=== PATIENT | male | born 2000 | race African-American/Black ===

== ENCOUNTER 2020-06-05 12:31 | Emergency (ER) | payer MEDICAID ==
[~2020-06-05] VITALS: Ht 180.3 cm; Wt 72.6 kg
[2020-06-05 12:54] VITALS: BP 122/77
--- NOTE | 2020-06-05 12:54 | NUR ---
ED Nurse Note: PT walked in to ed for c/O dry cough, bodyache, fatigue, headache x 4 days.
--- NOTE | 2020-06-05 14:03 | Emergency Room Report ---
History of Present Illness General Chief Complaint: Flu Like Symptoms Source: Patient Present Illness HPI 19-year-old male with no significant past medical history presents to the emergency department complaining of nonpainful cough, fatigue, body aches, and ST with a fever that broke on its own x4 days. Patient reports 4 days ago he traveled from [place] where he was around people that had upper respiratory/COVID- like symptoms. Patient denies chest pain. He denies productive sputum. Patient states he is not taking any medications for his symptoms. Denies ST, nasal congestion or rhinorrhea. Denies neck pain /stiffness. Allergies: Coded Allergies: No Known Allergies (Unverified , 06/05/20) COVID-19 Screening Contact w/high risk pt: No Experienced COVID-19 symptoms?: Yes COVID-19 Testing performed ACCOUNT CLASSIFICATION CLERK: No Patient History Past Medical History: see triage record Past Surgical History: none Pertinent Family History: none Reviewed Nursing Documentation: PMH: Agreed; PSxH: Agreed Nursing Documentation-PMH Past Medical History: No Stated History Review of Systems All Other Systems: negative except mentioned in HPI Physical Exam Vital Signs Date Time Temp Pulse Resp B/P (MAP) Pulse Ox O2 Delivery O2 Flow Rate FiO2 06/05/20 12:47 98.6 104 22 122/77 (92) 95 Room Air Sp02 EP Interpretation: reviewed, normal General Appearance: no apparent distress, alert, GCS 15, non-toxic Head: normocephalic, atraumatic Eyes: bilateral eye normal inspection, bilateral eye PERRL ENT: hearing grossly normal, normal pharynx, normal voice, uvula midline, moist mucus membranes Neck: full range of motion, no meningismus, no bony tend Respiratory: chest non-tender, lungs clear, normal breath sounds, no respiratory distress, no accessory muscle use, no wheezing, speaking full sentences Cardiovascular #1: regular rate, rhythm, normal capillary refill Musculoskeletal: back normal, normal range of motion, gait/station normal, non- tender Neurologic: alert, motor strength/tone normal, oriented x3, sensory intact, responsive, speech normal Psychiatric: judgement/insight normal Skin: no rash, normal color Lymphatic: no adenopathy Medical Decision Making PA Attestation Dr. Mercedes is my supervising Physician whom patient management has been discussed with. Diagnostic Impression: Primary Impression: Acute viral syndrome Additional Impression: Upper respiratory infection, viral ER Course 19-year-old male with no significant past medical history presents to the emergency department complaining of nonpainful cough, fatigue, body aches, and ST with a fever that broke on its own x4 days. Patient reports 4 days ago he traveled from [place] where he was around people that had upper respiratory/COVID- like symptoms. Patient denies chest pain. He denies productive sputum. Patient states he is not taking any medications for his symptoms. Denies ST, nasal congestion or rhinorrhea. Denies neck pain /stiffness. Ddx considered but are not limited to URI, pneumonia, PE, strep pharyngitis, meningitis, COVID-19 Vital signs: Pt. is afebrile, the remaining VS are WNL H&PE are most consistent with URI- suspected viral in etiology, no meningeal signs, oropharynx is not involved, no evidence of bacterial infection at this time. The patient is nontoxic in appearance and sitting in a chair in no acute distress. Patient does not demonstrate having respiratory distress or hypoxia at this time. ORDERS: -CXR: WNL ED INTERVENTIONS: None required at this time. This patient was evaluated in the context of the global COVID-19 pandemic, which necessitated consideration that the patient might be at risk for infection with the SARS-COV-2 virus that causes COVID-19. Institutional protocols and algorithms that pertaining to the evaluation of patients at risk for COVID-19 are in a state of rapid change based on information released by multiple regulatory bodies including the CDC and federal and state organizations. These policies and algorithms were followed during the patient' s care in the emergency department DISCHARGE: At this time pt. is stable for d/c to home. Will provide printed patient care instructions, and any necessary prescriptions. Care plan and follow up instructions have been discussed with the patient prior to discharge. Last Vital Signs Date Time Temp Pulse Resp B/P (MAP) Pulse Ox O2 Delivery O2 Flow Rate FiO2 06/05/20 12:54 98.6 104 22 122/77 95 Room Air Disposition: HOME, SELF-CARE Condition: Stable Scripts Albuterol Sulfate* (Albuterol Sulfate Hfa*) 8.5 Gm Hfa.aer.ad 2 PUFF INH Q4H, #1 INH Prov: Jolene Zamora 06/05/20 Acetaminophen* (TYLENOL EXTRA STRENGTH*) 500 Mg Tablet 500 MG ORAL Q6H PRN for Mild Pain/Temp > 100.5, #20 TAB 0 Refills Prov: Jolene Zamora 06/05/20 Codeine/Promethazine Hcl* (PROMETHAZINE-CODEINE SYRUP*) 118 Ml Syrup 5 ML ORAL Q6H PRN for For Cough, #120 ML 0 Refills Prov: Jolene Zamora 06/05/20 Referrals: NON PHYSICIAN (PCP) Frederick Henriquez [facility]. [facility] Patient Instructions: Upper Respiratory Infection, Adult, [id number] Additional Instructions: ~ ~ An emergent medical condition has not been identified based on this patients presentation, exam and any necessary testing/imaging. The patient is determined to be stable for outpatient follow-up and management of symptoms by a primary care provider. Take medications as directed. Follow up with a Primary Care Provider in 3-5 days, even if your symptoms have resolved. --Please review list of primary care clinics, if you do not already have a primary care provider Return sooner to ED if new symptoms occur, or current symptoms become worse. Do not drink alcohol, drive, or operate heavy machinery while taking Cough Syrup as this may cause drowsiness. - Please note that this Emergency Department Report was dictated using [employer]foreign exchange clerk technology software, occasionally this can lead to erroneous entry secondary to interpretation by the dictation equipment. Jolene Zamora Jun 05, 2020 14:02
[2020-06-05] MEDS ORDERED: ALBUTEROL SULF8.5 G1 INH (14:05)
[2020-06-05] MEDS ORDERED: TYLENOL EXTRA500 MG ORAL (14:05)
[2020-06-05] MEDS ORDERED: PROMETHAZINE-C118 M1 ORAL (14:05)
[2020-06-05 14:19] VITALS: BP 127/81
--- NOTE | 2020-06-05 14:19 | NUR ---
ER DISCHARGE NOTE: Patient is cleared to be discharged per ERMD, pt is aox4, on room air, with stable vital signs. pt was given dc and prescription instructions, pt was able to verbalize understanding, pt id band removed without complications. pt is able to ambulate with steady gait. pt took all belongings.
--- NOTE | 2020-06-05 15:21 | Diagnostic Imaging Report ---
Indication: Chest pain Technique: One view of the chest Comparison: none Findings: Lungs and pleural spaces are clear. Heart size is normal. Impression: No acute process
== END 2020-06-05 14:19 | disposition home or self-care (01) ==
LOC: EMR 13:10
DX: B34.9 Viral infection, unspecified (principal); J06.9 Acute upper respiratory infection, unspecified
CPT/HCPCS: 71045; Z7502; 99283